=== PATIENT | female | born 1980 | race Caucasian/White ===

== ENCOUNTER 2017-09-23 17:00 | Emergency (ER) | payer MEDICARE, MEDICAID ==
[2017-09-23 17:46] LABS: #Eosinphils 0.1 thou/uL (0.0-0.7); #Lymphocytes 4.4 thou/uL (1.20-3.40); #Neutrophils 4.2 thou/uL (1.40-6.50); %Basophils 0.5 % (0.0-1.0); %Eosinophils 1.3 % (0.0-10.0); %Lymphocytes 45.5 % (21.0-51.0); %Monocytes 10.1 % (0.0-10.0); %Neutrophils 42.6 % (42.0-75.0); Mean Corpuscular HGB CONC 34.3 g/dL (32.0-36.0); Mean Corpuscular Hemoglobin 30.8 pg (27.0-31.0); Mean Corpuscular Volume 89.7 fl (81.0-99.0); Mean Platelet Volume 6.7 fL (7.4-10.4); Platelet Count 345 thou/uL (130-400); RBC Distribution Width 12.2 % (11.5-14.5); Red Blood Cell (RBC) Count 4.56 mill/uL (4.20-5.40); White Blood Cell (WBC) Count 9.8 thou/uL (4.8-10.8)
[2017-09-23 18:11] LABS: ALT (SGPT) 28 U/L (8-55); AST (SGOT) 19 U/L (5-34); Acetaminophen Less than 6.0 mcg/mL (10.0-30.0); Albumin 4.3 g/dL (3.5-5.0); Alcohol Less than 10 mg/dL (Less than 10); Alkaline Phosphatase 61 U/L (40-150); Anion Gap 14 mmol/L (10-20); BUN (Urea Nitrogen) 9 mg/dL (7.0-18.7); Bilirubin, Total Less than 0.2 mg/dL (0.2-1.2); CK (CPK) 72 U/L (29-168); Calc. Creatinine Clearance 0 mL/min (70-130); Calcium 9.4 mg/dL (7.8-10.44); Carbon Dioxide 25 mmol/L (22-29); Chloride 103 mmol/L (98-107); Estimated GFR-MDRD 89; Globulin 2.9 g/dL (2.4-3.5); Glucose 92 mg/dL (70-105); Protein, Total 7.2 g/dL (6.0-8.3); Salicylate Less than 8.0 mg/dL (15.0-30.0); Sodium 138 mmol/L (136-145)
[2017-09-23 18:11] LABS: Bilirubin Negative (Negative); Blood, Urine Negative (Negative); Clarity CLEAR (Clear); Glucose, Urine (Dipstick) Negative (Negative); Leukocyte Negative (Negative); Nitrite Negative (Negative); Protein, Urine (Dipstick) 30 mg/dL (Neg-Trace); pH, Urine 7.5 (5.0-9.0)
[2017-09-23 18:14] LABS: Bacteria/HPF Rare-Few HPF (None Seen); Hyaline Casts/LPF 4-6 HYALINE CAST LPF (0-3 Hyaline); Pathc Cast-AUWi Flag 1.49 (0-2.49); RBC/HPF 0-3 HPF (0-3); Squamous Epithelial 0-3 HPF (0-3); WBC/HPF 0-3 HPF (0-3)
[2017-09-23 18:17] LABS: Pregnancy Test - Urine (BHCG) Negative (Negative); Pregu Control Background? CLEAR/WHITE (CLR/WHITE); Pregu Control Bar Appear? YES (CONTROL BAR)
[2017-09-23 18:27] LABS: Medtox Reader # READER 4; Methamphetamine Detected (NotDetected); Opiate Screen Detected (NotDetected)
[2017-09-23 18:28] LABS: Amphetamine Not Detected (NotDetected); Barbiturates Screen Not Detected (NotDetected); Benzodiazepine Screen Not Detected (NotDetected); Cocaine Metabolite Screen Not Detected (NotDetected); Medtox Control Line Valid? VALID (VALID); Methadone Not Detected (NotDetected); Oxycodone Screen Not Detected (NotDetected); Phencyclidine (PCP) Not Detected (NotDetected); THC/Cannabinoid Screen Not Detected (NotDetected); Tricyclic Screen Not Detected (NotDetected)
== END 2017-09-23 23:16 | disposition home or self-care (01) ==
LOC: ERS 17:00
DX: F43.20 Adjustment disorder, unspecified (principal); F32.9 Major depressive disorder, single episode, unspecified; I10 Essential (primary) hypertension; E78.00 Pure hypercholesterolemia, unspecified; K76.0 Fatty (change of) liver, not elsewhere classified; F41.9 Anxiety disorder, unspecified; Z79.899 Other long term (current) drug therapy
CPT/HCPCS: 36415; 80053; 80306; 80307; 81003; 81015; 81025; 82550; 84443; 85025; 99284

== ENCOUNTER 2018-08-25 11:02 | Day surgery (SDC) | payer MEDICARE, MEDICAID ==
[2018-08-24 13:10] VITALS: BMI 41.5
[2018-08-25] MEDS ORDERED: Fentanyl 100 MCG/2 ML VIAL ONE ×2 (12:14→14:01)
--- NOTE | 2018-08-25 15:43 | MRI ---
LUMBAR SPINE MRI WITH AND WITHOUT IV CONTRAST: 08/25/18 HISTORY: M54.16 - lumbar radiculopathy, fall one week ago with left sided lower back pain, history of prior di scectomy two months ago. Multiplanar and multisequence MRI examination of the lumbar spine with and without IV contrast is per formed. FINDINGS: Conus medullaris region is unremarkable terminating at L1. T12-L1 and L1-L2 and L2-L3 discs demonstrate no focal herniation or significant canal or foraminal s tenosis. At L3-L4, there is some disc desiccation changes with a small right paracentral annular fissure with some mild indention of the ventral thecal sac and slight thinning of the lateral recesses, but no sig nificant central canal stenosis. At L4-L5, diffuse mild disc bulging with evidence for a central annular fissure but without significa nt central canal, lateral recess or foraminal stenosis. At L5-S1, there is evidence of primarily right sided enhancing scar extending from the right lateral recess region and through the right laminotomy defect and along the right side of the spinous process and into the dorsal subcutaneous tissues. There is a focal right paracentral extruded disc herniatio n with very minimal adjacent peridiscal scar. This is resulting in some central thecal sac indention and mild central canal and lateral recess stenosis. There does appear to be some enhancing scar aroun d the right S1 nerve root origin. No significant abnormal marrow signal. IMPRESSION: Some prominent right sided enhancing scar including some enhancing scar around the right S1 nerve ro ot origin. Evidence for a central and right central extruded disc herniation with some minimal peridi scal enhancement with mild central canal and lateral recess stenosis. Evidence for annular fissures a t L3-4 and L4-5 disc. Other findings as above. POS: [facility]
[2018-08-25] MEDS ORDERED: ePHEDrine/0.9% NaCl/PF SYRINGE 50 mg/10 ml ONE (16:12)
[2018-08-25] MEDS ORDERED: PROPOFOL 200 MG/20 ML VIAL ONE (16:12)
[2018-08-25] MEDS ORDERED: PHENYLEPHRINE-NS 100 MCG/ML 10 ML SYRINGE ONE (16:12)
[2018-08-25] MEDS ORDERED: Lidocaine 1% PF 5 ML VIAL ONE (16:12)
== END 2018-08-25 14:56 | disposition home or self-care (01) ==
LOC: SDC/OP 11:02
PROVIDERS: ATTEND Neurological Surgery
DX: M51.16 Intervertebral disc disorders with radiculopathy, lumbar region (principal); M48.061 Spinal stenosis, lumbar region without neurogenic claudication; G89.4 Chronic pain syndrome; F31.9 Bipolar disorder, unspecified; I10 Essential (primary) hypertension; Z79.52 Long term (current) use of systemic steroids; Z79.899 Other long term (current) drug therapy; Z88.8 Allergy status to other drugs, medicaments and biological substances; Z91.018 Allergy to other foods; Z88.6 Allergy status to analgesic agent; Z98.890 Other specified postprocedural states; W19.XXXA Unspecified fall, initial encounter
CPT/HCPCS: 72158; J2001; J2704; J3010

== ENCOUNTER 2019-02-10 11:36 | Outpatient (CLI) | payer MEDICARE, MEDICAID ==
--- NOTE | 2019-02-10 11:56 | RAD ---
XR Abdomen 2 View 2 view abdomen series CLINICAL INDICATION: Pain FINDINGS: Lung bases are clear. No free air. Moderate retained fecal material is seen within colon. No mechanical bowel obstruction. Metallic clips of right abdomen are present. No acute osseous pathology. There are pelvic phleboliths. IMPRESSION: No acute process.
== END 2019-02-10 11:37 | disposition home or self-care (01) ==
LOC: BICRAD 11:36
PROVIDERS: ATTEND Physician Assistant Medical
DX: R10.9 Unspecified abdominal pain (principal); R11.2 Nausea with vomiting, unspecified; R19.4 Change in bowel habit
CPT/HCPCS: 74019

== ENCOUNTER 2019-02-22 07:10 | Outpatient (CLI) | payer MEDICARE, MEDICAID ==
--- NOTE | 2019-02-22 13:01 | NM ---
RADIONUCLIDE GASTRIC EMPTYING SCAN: HISTORY: Nausea with vomiting, unspecified. Weight loss RADIOPHARMACEUTICAL: 2 mCi technetium 99m sulfur colloid administered orally in scrambled eggs. FINDINGS: Gastric emptying at different times is as follows: 1 hour: 39% 2 hours: 54% 3 hours: 89% 4 hours: 99% The calculated gastric emptying half-time [id number]. IMPRESSION: Normal exam
== END 2019-02-22 07:11 | disposition home or self-care (01) ==
LOC: NM 07:10
PROVIDERS: ATTEND Physician Assistant Medical
DX: R10.9 Unspecified abdominal pain (principal); R11.2 Nausea with vomiting, unspecified; R19.4 Change in bowel habit
CPT/HCPCS: 78264; A9541

== ENCOUNTER 2025-02-21 10:57 | Outpatient (CLI) | payer MEDICARE, MEDICAID ==
[2025-02-21 12:12] LABS: #Basophils 0.06 10x3/uL (0.0-0.2); #Eosinophils 0.14 10x3/uL (0.0-0.7); #Monocytes 0.98 10x3/uL (0.11-0.59); #Neutrophils 7.73 10x3/uL (1.40-6.50); %Basophils 0.5 % (0.0-1.0); %Eosinophils 1.1 % (0.0-10.0); %Lymphocytes 28.8 % (21.0-51.0); %Monocytes 7.8 % (0.0-10.0); %Neutrophils 61.6 % (42.0-75.0); Hematocrit 45.2 % (36.0-47.0); Hemoglobin 15.4 g/dL (12.0-16.0); Mean Corpuscular Hemoglobin 30.3 pg (27.0-31.0); Mean Corpuscular Volume 88.8 fL (78.0-98.0); Platelet Count 269 10x3/uL (130-400); Red Blood Cell (RBC) Count 5.09 mill/uL (4.20-5.40); White Blood Cell (WBC) Count 12.56 10x3/uL (4.8-10.8)
[2025-02-21 12:36] LABS: ALT (SGPT) 25 U/L (Less than 34); AST (SGOT) 25 U/L (11-34); Albumin 4.4 g/dL (3.1-4.5); Alkaline Phosphatase 64 U/L (40-110); Anion Gap 17 mmol/L (10-20); BUN (Urea Nitrogen) 14 mg/dL (7.0-18.7); Bilirubin, Total 0.3 mg/dL (0.3-1.2); Calc. Creatinine Clearance 0 mL/min (70-130); Calcium 9.5 mg/dL (7.8-10.44); Carbon Dioxide 21 mmol/L (22-29); Chloride 104 mmol/L (98-107); Globulin 4.3 g/dL (2.4-3.5); Glucose 117 mg/dL (70-105); Potassium 4.2 mmol/L (3.5-5.1); Sodium 138 mmol/L (136-145)
== END 2025-02-21 10:58 | disposition home or self-care (01) ==
LOC: LABBT 10:57
PROVIDERS: ATTEND Surgery
DX: Z01.818 Encounter for other preprocedural examination (principal); E66.01 Morbid (severe) obesity due to excess calories
CPT/HCPCS: 80053; 83036; 85025; 93005; 93010

== ENCOUNTER 2025-02-21 14:00 | Inpatient (IN) | payer MEDICARE, MEDICAID ==
[2025-02-21 11:33] VITALS: BMI 36.3
[2025-03-01] MEDS ORDERED: Ketorolac Tromethamine 30 MG (1 mL) VIAL ONE (09:29)
[2025-03-01] MEDS ORDERED: Acetaminophen 500 MG TAB ONE (09:29)
[2025-03-01] MEDS ORDERED: Heparin 5,000 UNITS/ML VIAL ONE (09:29)
[2025-03-01] MEDS ORDERED: CEFAZOLIN 2 GM VIAL ONE (09:30)
[2025-03-01] MEDS ORDERED: PROPOFOL 20 ML ONE ×2 (09:55→12:22)
[2025-03-01] MEDS ORDERED: fentaNYL PF 100 MCG/2 ML SYRINGE ONE ×3 (09:56→13:40)
[2025-03-01] MEDS ORDERED: Lidocaine 1% PF 5 ML VIAL ONE (09:56)
[2025-03-01] MEDS ORDERED: Rocuronium Bromide 10 MG/ML (10ML VIAL) ONE (09:56)
[2025-03-01] MEDS ORDERED: Bupivacaine 0.25% HCL 30 ML VIAL ONE (11:03)
[2025-03-01] MEDS ORDERED: Ondansetron PF 4 MG/2 ML Vial ONE ×2 (12:57→13:37)
[2025-03-01] MEDS ORDERED: SUGAMMADEX SODIUM 200 MG/2 ML VIAL ONE (12:57)
[2025-03-01] MEDS ORDERED: Dextrose 50% Abboject 50 ML SYRINGE SLOW IVP PRN (13:20)
[2025-03-01] MEDS ORDERED: Glucagon 1 MG/ML KIT IM PRN (13:20)
[2025-03-01] MEDS ORDERED: Ondansetron PF 4 MG/2 ML Vial IVP PRN (13:20)
[2025-03-01] MEDS ORDERED: diphenhydrAMINE 50 MG/ML VIAL IVP PRN (13:20)
[2025-03-01] MEDS ORDERED: HYDROmorphone 0.5 MG/0.5 ML SYRINGE ONE ×2 (13:46→13:59)
[2025-03-01] MEDS: Pregabalin 50 MG CAP PO SCH (15:02)
[2025-03-01] MEDS: Metoprolol Succinate XL 100 MG ER.TAB PO SCH (20:07)
[2025-03-01] MEDS: hydrALAZINE 20 MG/ML VIAL SLOW IVP PRN (22:49)
[2025-03-01] MEDS: oxyCODONE 5 MG TAB PO PRN (23:36)
[2025-03-02 05:12] LABS: #Basophils Less than 0.03 10x3/uL (0.0-0.2); #Eosinophils Less than 0.03 10x3/uL (0.0-0.7); #Monocytes 0.91 10x3/uL (0.11-0.59); #Neutrophils 12.67 10x3/uL (1.40-6.50); %Basophils 0.1 % (0.0-1.0); %Eosinophils 0.0 % (0.0-10.0); %Lymphocytes 13.1 % (21.0-51.0); %Monocytes 5.8 % (0.0-10.0); %Neutrophils 80.4 % (42.0-75.0); Hematocrit 43.7 % (36.0-47.0); Hemoglobin 15.2 g/dL (12.0-16.0); Mean Corpuscular Hemoglobin 29.7 pg (27.0-31.0); Mean Corpuscular Volume 85.4 fL (78.0-98.0); Platelet Count 274 10x3/uL (130-400); Red Blood Cell (RBC) Count 5.12 mill/uL (4.20-5.40); White Blood Cell (WBC) Count 15.76 10x3/uL (4.8-10.8)
[2025-03-02 05:22] LABS: Anion Gap 16 mmol/L (10-20); BUN (Urea Nitrogen) 6 mg/dL (7.0-18.7); Calc. Creatinine Clearance 232 mL/min (70-130); Calcium 8.7 mg/dL (7.8-10.44); Carbon Dioxide 18 mmol/L (22-29); Chloride 101 mmol/L (98-107); Glucose 171 mg/dL (70-105); Potassium 3.1 mmol/L (3.5-5.1); Sodium 132 mmol/L (136-145)
[2025-03-02] MEDS: Verapamil 120 MG SR.TAB PO SCH (07:53)
[2025-03-02] MEDS: Potassium Chloride 20 MEQ in Premix 1 BAG IVPB SCH (09:03)
[2025-03-02] MEDS: Enoxaparin 40 MG (0.4 mL) SYRINGE SC SCH (09:03)
[2025-03-02] MEDS: Pantoprazole 40 MG VIAL IVP SCH (09:04)
[2025-03-02] MEDS: Metoclopramide HCl 10 MG (2 mL) VIAL IVP PRN (09:04)
[2025-03-03] MEDS: Ondansetron PF 4 MG/2 ML Vial IVP PRN (08:39)
[2025-03-03 09:31] LABS: #Basophils Less than 0.03 10x3/uL (0.0-0.2); #Eosinophils Less than 0.03 10x3/uL (0.0-0.7); #Monocytes 1.35 10x3/uL (0.11-0.59); #Neutrophils 11.24 10x3/uL (1.40-6.50); %Basophils 0.1 % (0.0-1.0); %Eosinophils 0.1 % (0.0-10.0); %Lymphocytes 22.2 % (21.0-51.0); %Monocytes 8.3 % (0.0-10.0); %Neutrophils 69.0 % (42.0-75.0); Hematocrit 38.5 % (36.0-47.0); Hemoglobin 13.3 g/dL (12.0-16.0); Mean Corpuscular Hemoglobin 30.0 pg (27.0-31.0); Mean Corpuscular Volume 86.7 fL (78.0-98.0); Platelet Count 246 10x3/uL (130-400); Red Blood Cell (RBC) Count 4.44 mill/uL (4.20-5.40); White Blood Cell (WBC) Count 16.28 10x3/uL (4.8-10.8)
[2025-03-03 10:31] LABS: Anion Gap 13 mmol/L (10-20); BUN (Urea Nitrogen) 12 mg/dL (7.0-18.7); Calc. Creatinine Clearance 242 mL/min (70-130); Calcium 8.2 mg/dL (7.8-10.44); Carbon Dioxide 22 mmol/L (22-29); Chloride 103 mmol/L (98-107); Glucose 168 mg/dL (70-105); Potassium 3.1 mmol/L (3.5-5.1); Sodium 135 mmol/L (136-145)
[2025-03-03] MEDS: Potassium Chloride 20 MEQ in Premix 1 BAG IVPB SCH (14:40)
[2025-03-04 06:16] LABS: Anion Gap 11 mmol/L (10-20); BUN (Urea Nitrogen) 12 mg/dL (7.0-18.7); Calc. Creatinine Clearance 218 mL/min (70-130); Calcium 8.2 mg/dL (7.8-10.44); Carbon Dioxide 25 mmol/L (22-29); Chloride 105 mmol/L (98-107); Glucose 119 mg/dL (70-105); Potassium 3.5 mmol/L (3.5-5.1); Sodium 137 mmol/L (136-145)
[2025-03-04] MEDS ORDERED: Metoprolol Tartrate 5 MG (5 mL) VIAL IVP SCH (15:45)
[2025-03-04] MEDS: Metoprolol Tartrate 5 MG (5 mL) VIAL IVP SCH (16:31)
[2025-03-04] MEDS: cloNIDine 0.1mg/24 Hour PATCH TD SCH (17:01)
[2025-03-05] MEDS: Hydrocodone-Acetamin 15 ML UDCUP PO PRN (09:22)
[2025-03-05 12:54] VITALS: BP 136/77; TEMP 98.1
== END 2025-03-05 15:35 | disposition home or self-care (01) | DRG 983 ==
LOC: SURG A 03-01 08:26
PROVIDERS: ADMIT Surgery; ATTEND Internal Medicine
PROC: 0D164ZA Bypass Stomach to Jejunum, Percutaneous Endoscopic Approach (ICD-10-PCS; principal; 2025-03-01)
PROC: 8E0W4CZ Robotic Assisted Procedure of Trunk Region, Percutaneous Endoscopic Approach (ICD-10-PCS; 2025-03-01)
DX: E11.43 Type 2 diabetes mellitus with diabetic autonomic (poly)neuropathy (principal); K31.84 Gastroparesis; G89.4 Chronic pain syndrome; E66.812 Obesity, class 2; E11.9 Type 2 diabetes mellitus without complications; I10 Essential (primary) hypertension; Z68.36 Body mass index [BMI] 36.0-36.9, adult; Z88.8 Allergy status to other drugs, medicaments and biological substances; Z79.899 Other long term (current) drug therapy
CPT/HCPCS: 36415; 80048; 85025; J0169; J0360; J0665; J1100; J1171; J1644; J1650; J1885; J2405; J2470; J2550; J2704; J2765; J3010; J3480; J7030; Q0162; S2900

== ENCOUNTER 2025-04-15 12:21 | Day surgery (SDC) | payer MEDICARE, MEDICAID ==
[2025-04-15] MEDS ORDERED: Ondansetron PF 4 MG/2 ML Vial ONE (12:43)
[2025-04-15] MEDS: Ondansetron PF 4 MG/2 ML Vial IVP PRN (12:44)
[2025-04-15] MEDS: Multivitamins, Adult 10 ML, Thiamine HCl 100 MG in Sodium Chloride 0.9% 1,000 ML IV SCH (13:15)
[2025-04-15 13:38] VITALS: BP 105/61; TEMP 98
== END 2025-04-15 15:16 | disposition home or self-care (01) ==
LOC: ONC/OP 12:21
PROVIDERS: ATTEND Surgery
DX: E86.0 Dehydration (principal); Z88.5 Allergy status to narcotic agent; Z88.8 Allergy status to other drugs, medicaments and biological substances; Z91.048 Other nonmedicinal substance allergy status; Z87.891 Personal history of nicotine dependence
CPT/HCPCS: 96360; 96361; 96375; J1642; J2405; J3411; J7030

== ENCOUNTER 2025-04-22 09:15 | Day surgery (SDC) | payer MEDICARE, MEDICAID ==
[2025-04-22] MEDS ORDERED: Ondansetron PF 4 MG/2 ML Vial IVP PRN (09:36)
[2025-04-22] MEDS: Multivitamins, Adult 10 ML, Thiamine HCl 100 MG in Sodium Chloride 0.9% 1,000 ML IV SCH (10:14)
[2025-04-22 10:45] VITALS: BP 112/63; TEMP 97.7
== END 2025-04-22 11:40 | disposition home or self-care (01) ==
LOC: ONC/OP 09:15
PROVIDERS: ATTEND Surgery
DX: E86.0 Dehydration (principal); Z91.048 Other nonmedicinal substance allergy status; Z88.8 Allergy status to other drugs, medicaments and biological substances; Z88.6 Allergy status to analgesic agent
CPT/HCPCS: 96360; J1642; J3411; J7030